=== PATIENT | male | born 1950 | race Caucasian/White ===

== ENCOUNTER 2024-05-08 15:38 | Outpatient (RCR) | payer MEDICARE, OTHER, SELFPAY | END 2024-05-08 23:59 | disposition home or self-care (01) | LOC: RPT 15:38 | PROVIDERS: ATTENDING PHYSICIAN Internal Medicine Hematology & Oncology | DX: M76.61 Achilles tendinitis, right leg; R26.2 Difficulty in walking, not elsewhere classified; M76.62 Achilles tendinitis, left leg; Z73.6 Limitation of activities due to disability; R26.89 Other abnormalities of gait and mobility | CPT/HCPCS: 97110; 97161 ==

== ENCOUNTER 2024-06-10 16:09 | Outpatient (RCR) | payer MEDICARE, OTHER, SELFPAY | END 2024-06-10 23:59 | disposition home or self-care (01) | LOC: RPT 16:09 | PROVIDERS: ATTENDING PHYSICIAN Internal Medicine Hematology & Oncology | DX: M76.62 Achilles tendinitis, left leg (principal); M76.61 Achilles tendinitis, right leg; Z73.6 Limitation of activities due to disability; R26.2 Difficulty in walking, not elsewhere classified; M62.81 Muscle weakness (generalized); Z96.661 Presence of right artificial ankle joint | CPT/HCPCS: 97110; 97112 ==

== ENCOUNTER → 2024-06-23 09:21 | Outpatient (REF) | payer MEDICARE, OTHER, SELFPAY | LOC: HWRAD 09:21 | PROVIDERS: ATTENDING PHYSICIAN Orthopaedic Surgery; FAMILY PHYSICIAN Family Medicine; REFERRING PHYSICIAN Student in an Organized Health Care Education/Training Program | DX: I82.461 Acute embolism and thrombosis of right calf muscular vein (principal) | CPT/HCPCS: 93971 ==

== ENCOUNTER → 2024-07-11 07:20 | Outpatient (REF) | payer MEDICARE, OTHER, SELFPAY | LOC: RAD 07:20 | PROVIDERS: ATTENDING PHYSICIAN Student in an Organized Health Care Education/Training Program; FAMILY PHYSICIAN Family Medicine | DX: I87.2 Venous insufficiency (chronic) (peripheral) (principal) | CPT/HCPCS: 93971 ==

== ENCOUNTER 2024-09-05 09:00 | Outpatient (RCR) | payer MEDICARE, OTHER, SELFPAY | END 2024-09-05 23:59 | disposition home or self-care (01) | LOC: RPT 09:00 | PROVIDERS: ATTENDING PHYSICIAN Student in an Organized Health Care Education/Training Program | DX: M76.62 Achilles tendinitis, left leg (principal); M76.61 Achilles tendinitis, right leg | CPT/HCPCS: 97110; 97164 ==

== ENCOUNTER 2024-09-16 16:11 | Outpatient (RCR) | payer MEDICARE, OTHER, SELFPAY | END 2024-09-16 23:59 | disposition home or self-care (01) | LOC: RPT 16:11 | PROVIDERS: ATTENDING PHYSICIAN Student in an Organized Health Care Education/Training Program | DX: M76.60 Achilles tendinitis, unspecified leg (principal); Z73.6 Limitation of activities due to disability; R26.2 Difficulty in walking, not elsewhere classified | CPT/HCPCS: 97110; 97112 ==

== ENCOUNTER → 2024-10-01 12:43 | Outpatient (REF) | payer MEDICARE, OTHER, SELFPAY | LOC: RCS 12:43 | PROVIDERS: ATTENDING PHYSICIAN Obstetrics & Gynecology; FAMILY PHYSICIAN Family Medicine | DX: I27.20 Pulmonary hypertension, unspecified (principal); R01.1 Cardiac murmur, unspecified | CPT/HCPCS: 93306 ==

== ENCOUNTER → 2024-10-28 13:19 | Outpatient (REF) | payer MEDICARE, OTHER, SELFPAY ==
[2024-10-28 14:06] LABS: Urine Albumin Negative (Neg - Trace); Urine Bilirubin Negative (Negative); Urine Character Clear (Clear); Urine Color Yellow; Urine Glucose Negative (Negative); Urine Ketone Negative (Negative); Urine Leukocyte Negative (Negative); Urine Nitrite Negative (Negative); Urine Occult Blood Negative (Negative); Urine Urobilinogen 1+ (Neg - 1+)
[2024-10-28 14:50] LABS: PSA, Total - Diagnostic 5.56 ng/ml (0.0-4.0)
== END ==
LOC: REG 13:19
PROVIDERS: ATTENDING PHYSICIAN Specialist; FAMILY PHYSICIAN Family Medicine
DX: R97.20 Elevated prostate specific antigen [PSA] (principal)
CPT/HCPCS: 36415; 81003; 84153

== ENCOUNTER 2024-12-16 06:50 | Day surgery (SDC) | payer MEDICARE, OTHER, SELFPAY ==
[2024-12-16 08:32] VITALS: BMI 32.0
== END 2024-12-16 09:09 | disposition home or self-care (01) ==
LOC: CATH 06:50
PROVIDERS: ATTENDING PHYSICIAN Internal Medicine Cardiovascular Disease; FAMILY PHYSICIAN Family Medicine; OTHER PHYSICIAN Internal Medicine Cardiovascular Disease
DX: I48.91 Unspecified atrial fibrillation (principal); I10 Essential (primary) hypertension; E78.5 Hyperlipidemia, unspecified; I45.10 Unspecified right bundle-branch block; Z79.01 Long term (current) use of anticoagulants
CPT/HCPCS: 92960; 93005

== ENCOUNTER → 2025-02-24 10:04 | Outpatient (REF) | payer MEDICARE, OTHER, SELFPAY | LOC: REG 10:04 | PROVIDERS: ATTENDING PHYSICIAN Family Medicine | DX: R05.3 Chronic cough (principal); J45.909 Unspecified asthma, uncomplicated | CPT/HCPCS: 87070; 87205 ==

== ENCOUNTER → 2025-03-17 12:28 | Outpatient (REF) | payer MEDICARE, OTHER, SELFPAY | LOC: RAD 12:28 | PROVIDERS: ATTENDING PHYSICIAN Nurse Practitioner Family | DX: R05.3 Chronic cough (principal) | CPT/HCPCS: 71046 ==

== ENCOUNTER → 2025-03-26 13:13 | Outpatient (REF) | payer MEDICARE, OTHER, SELFPAY | LOC: REG 13:13 | PROVIDERS: ATTENDING PHYSICIAN Nurse Practitioner Family; FAMILY PHYSICIAN Family Medicine | DX: R05.3 Chronic cough (principal) | CPT/HCPCS: 87070; 87205 ==

== ENCOUNTER → 2025-05-18 12:58 | Outpatient (REF) | payer MEDICARE, OTHER, SELFPAY ==
[2025-05-18 13:30] LABS: INR 1.52; PT 18.6 Sec (11.4-14.6)
== END ==
LOC: REG 12:58
PROVIDERS: ATTENDING PHYSICIAN Internal Medicine Hematology & Oncology
DX: I26.99 Other pulmonary embolism without acute cor pulmonale (principal); I82.402 Acute embolism and thrombosis of unspecified deep veins of left lower extremity; D69.9 Hemorrhagic condition, unspecified; D51.3 Other dietary vitamin B12 deficiency anemia; E72.19 Other disorders of sulfur-bearing amino-acid metabolism; D68.61 Antiphospholipid syndrome
CPT/HCPCS: 36415; 85610

== ENCOUNTER → 2025-08-18 09:36 | Outpatient (REF) | payer MEDICARE, OTHER, SELFPAY ==
[2025-08-18 10:53] LABS: INR 1.49; PT 18.2 Sec (11.4-14.6)
== END ==
LOC: REG 09:36
PROVIDERS: ATTENDING PHYSICIAN Nurse Practitioner Pediatrics; FAMILY PHYSICIAN Family Medicine
DX: I26.99 Other pulmonary embolism without acute cor pulmonale (principal); I82.402 Acute embolism and thrombosis of unspecified deep veins of left lower extremity; D69.9 Hemorrhagic condition, unspecified; D51.3 Other dietary vitamin B12 deficiency anemia; E72.19 Other disorders of sulfur-bearing amino-acid metabolism; D68.61 Antiphospholipid syndrome
CPT/HCPCS: 36415; 85610